=== PATIENT | male | born 1995 | race Two or more races ===

== ENCOUNTER 2023-10-22 15:26 | Emergency (ER) | payer BC, OTHER ==
[~2023-10-22] VITALS: Ht 180.3 cm; Wt 146.3 kg
[2023-10-22 16:35] VITALS: BP 132/86; PULSE 114; RESP 18; O2SAT 95
[2023-10-22 17:08] VITALS: TEMP 98.4
[2023-10-22] MEDS ORDERED: BACDST PO (18:02)
[2023-10-22] MEDS ORDERED: CEPH500C PO (18:02)
[2023-10-22 18:25] LABS: Basophils # (auto) 0 10 ^3/uL (0-0.2); Basophils % (auto) 0.2 % (0.0-2.0); Eosinophils # (auto) 0 10 ^3/uL (0-0.8); Eosinophils % (auto) 0.1 % (0.0-7.0); Hematocrit 39.6 % (41.0-53.0); Hemoglobin 13.7 g/dL (13.5-17.5); Lymphocytes # (auto) 1.9 10 ^3/uL (0.4-5.4); Mean Corpuscular Hemoglobin 30.9 pg (28.0-32.0); Mean Corpuscular Hgb Conc. 34.5 g/dL (32.0-36.0); Mean Corpuscular Volume 89.7 fL (80.0-100.0); Monocytes # (auto) 1.3 10 ^3/uL (0-1.3); Monocytes % (auto) 8.4 % (0.0-12.0); Neutrophils # (auto) 12.4 10 ^3/uL (1.6-8.6); Neutrophils % (auto) 79.3 % (37.0-80.0); Nucleated Red Blood Cells % 0.2 %; Platelet Count (auto) 313 10^3/uL (140-450); Red Blood Cells 4.42 10^6/uL (4.5-5.90); Red Cell Distribution Width 13.7 % (11.8-14.3); White Blood Cell 15.6 10^3/uL (4.4-10.8)
[2023-10-22 18:30] LABS: Chloride 102 mmol/L (98-107); Potassium 3.8 mmol/L (3.5-5.1); Sodium 135 mmol/L (136-145)
[2023-10-22 18:31] LABS: Anion Gap 9 (5-15); Calcium 9.6 mg/dL (8.7-10.4); Carbon Dioxide 24 mmol/L (20-30)
[2023-10-22 18:36] LABS: BUN/Creatinine Ratio 11.6 (10.0-20.0); Blood Urea Nitrogen 11 mg/dL (9-23); Glucose 105 mg/dL (74-106)
[2023-10-22] MEDS: methylPREDNISolone SOD SUCC 125 MG/2 ML VL IV ONE (18:36)
[2023-10-22] MEDS: cefTRIAXone 2GM/50ML D5W 50 ML IV ONE (18:36)
[2023-10-22] MEDS: KETOROLAC TROMETH 30 MG/ML 1ML VIAL IV ONE (18:36)
== END 2023-10-22 19:07 | disposition home or self-care (01) ==
LOC: ER 15:26
DX: L03.116 Cellulitis of left lower limb (principal); Z79.899 Other long term (current) drug therapy
CPT/HCPCS: 36415; 80048; 85025; 96365; 96375; 99284; J0696; J1885; J2919